=== PATIENT | male | born 1970 | race Hispanic/Latino ===

== ENCOUNTER 2018-09-26 11:35 | Day surgery (SDC) | payer BC ==
--- NOTE | 2018-09-26 12:44 | Anesthesia Consultation ---
Anesthesia Consult and Med Hx Date of service: 09/26/18 - Airway Anesthetic Teeth Evaluation: Good ROM Head & Neck: Adequate Mental/Hyoid Distance: Adequate Mallampati Class: Class II Intubation Access Assessment: Good - Pulmonary Exam CTA: Yes - Cardiac Exam Cardiac Exam: RRR - Pre-Operative Health Status ASA Pre-Surgery Classification: ASA2 Proposed Anesthetic Plan: General - Pulmonary Hx Smoking: Yes (1/4 PPD X 30 YRS) Hx Sleep Apnea: No (JERE PRE SCREEN HIGH RISK) - Cardiovascular System Hx Hypertension: Yes (X 20 YRS) - Central Nervous System Hx Back Pain: Yes (FROM STONE) - Other Systems Hx Cancer: No
--- NOTE | 2018-09-26 12:45 | Anesthesia Day of Surgery ---
Anesthesia Day of Surgery - Day of Surgery Patient Examined: Yes Patient H&P Reviewed: Yes Patient is NPO: Yes
[2018-09-26] MEDS ORDERED: LACTATED RINGERS 1,000 ML ONE (12:57)
[2018-09-26] MEDS ORDERED: ZOFRAN ONE ×2 (12:57→16:07)
[2018-09-26] MEDS ORDERED: VERSED IV NR (13:00)
[2018-09-26] MEDS ORDERED: PEPCID PO NR (13:00)
[2018-09-26] MEDS ORDERED: ZOFRAN IV NR (13:00)
[2018-09-26] MEDS ORDERED: LACTATED RINGERS 1,000 ML IV SCH (13:00)
--- NOTE | 2018-09-26 13:41 | XRay Report ---
AP ABDOMEN: HISTORY: Kidney stones, left flank pain. No comparison. There is residual IV contrast in the left collecting system which appears mildly dilated. There appears to be a filling defect in the proximal left ureter consistent with a stone measuring approximately 5 mm. The right renal shadow is unremarkable. The bowel gas pattern is within normal limits. IMPRESSION: Proximal left ureteral stone, mild left hydronephrosis.
[2018-09-26] MEDS ORDERED: LEVAQUIN 500MG/100ML 500 MG/100 ML BAG IV NR (14:00)
[2018-09-26] MEDS ORDERED: DIPRIVAN 10 MG/ML IV ONE (15:04)
[2018-09-26] MEDS ORDERED: SUBLIMAZE ONE (15:04)
[2018-09-26] MEDS ORDERED: XYLOCAINE MPF 2% ONE (15:06)
--- NOTE | 2018-09-26 15:42 | Post Operative Note ---
Date of procedure: 09/26/18 Pre-op diagnosis: upj stone Post-op diagnosis: same Findings: as above Procedure: l eswl Anesthesia: LURDES Surgeon: NEEL CHOW Estimated blood loss: none Pathology: none Condition: stable Disposition: PACU
--- NOTE | 2018-09-26 15:43 | Discharge Summary ---
Short Stay Discharge Plan Activity: other (no straining ) Weight Bearing Status: Full Weight Bearing Diet: regular, low fat, low salt Special Instructions: other (inc fluids ) Durable Medical Equipment Needed Upon Discharge: other (give strainer ) Follow up with: RONNIE MIMS MD [Primary Care Provider] - 7 Days GUMARO COON MD [Staff Physician] - 7 Days
[2018-09-26] MEDS ORDERED: NACL 0.9% 1000 ML 1,000 ML ONE (16:07)
--- NOTE | 2018-09-26 16:10 | Operative Report ---
PREOPERATIVE DIAGNOSIS: Left ureteropelvic junction stone with obstruction. POSTOPERATIVE DIAGNOSIS: Left ureteropelvic junction stone with obstruction. PROCEDURE: In situ left lithotripsy. SURGEON: Stephen Durbin MD ANESTHESIA: General. FINDINGS: This is a gentleman with a stone UPJ. He has contrast collimated to that level. He now presents for treatment. DESCRIPTION OF PROCEDURE: The patient was brought to lithotripsy unit and placed on the table. Following the induction of anesthesia, placed over the F2 focal point, both the AP and oblique images. The colonization stone was well visualized. We started at 1 kV, increased to a maximum of 8 kV. Excellent contrast went distally. The stone well fragmented. We did not place a stent. The patient tolerated the procedure well. Family notified, brought to recovery in stable condition. JOB# [id number] EILEEN/DEE
[2018-09-26] MEDS ORDERED: ZOFRAN IV PRN (17:05)
[2018-09-26] MEDS: DILAUDID IV PRN ×2 (17:12→17:25)
[2018-09-26 18:03] VITALS: BP 146/94
--- NOTE | 2018-09-27 08:43 | Post Anesthesia Evaluation ---
- Post Anesthesia Evaluation Patient Participated: Yes Airway Patent: Yes Stable Respiratory Function: Yes Nausea/Vomiting: No Temp > 96.8F: Yes Pain Manageable: Yes Adequeate Hydration: Yes Anesthesia Complications: No Block Receding Appropriately: Not Applicable Patient on Ventilator: No
== END 2018-09-26 17:50 | disposition home or self-care (01) ==
LOC: OR 11:35
PROVIDERS: ATTEND Urology
DX: N13.2 Hydronephrosis with renal and ureteral calculous obstruction (principal); E78.00 Pure hypercholesterolemia, unspecified; I10 Essential (primary) hypertension; F17.210 Nicotine dependence, cigarettes, uncomplicated; Z88.0 Allergy status to penicillin; Z79.899 Other long term (current) drug therapy
CPT/HCPCS: 50590; 74018; J1170; J1956; J2250; J2405; J2704; J3010; J7030; J7120